=== PATIENT | male | born 1955 | race Native Hawaiian/Other Pacific Islander ===

== ENCOUNTER 2020-08-20 12:04 | Outpatient (CLI) | payer OTHER, MEDICARE ==
[2020-08-20 14:01] LABS: PLATELET COUNT 228 K/uL (142-355)
[2020-08-20 14:35] LABS: POTASSIUM 4.5 mmol/L (3.6-5.2)
== END 2020-08-20 19:47 | disposition home or self-care (01) ==
LOC: LAB 12:04
PROVIDERS: ATTEND Nurse Practitioner Family
DX: Z00.00 Encounter for general adult medical examination without abnormal findings (principal); I10 Essential (primary) hypertension; E11.9 Type 2 diabetes mellitus without complications; E29.1 Testicular hypofunction; Z79.899 Other long term (current) drug therapy; R53.83 Other fatigue; D45 Polycythemia vera; R97.20 Elevated prostate specific antigen [PSA]; Z12.11 Encounter for screening for malignant neoplasm of colon; E55.9 Vitamin D deficiency, unspecified; E53.8 Deficiency of other specified B group vitamins
CPT/HCPCS: 36415; 80053; 80061; 82306; 82607; 83036; 84154; 84403; 84439; 84443; 85027